=== PATIENT | male | born 1980 | race African-American/Black ===

== ENCOUNTER 2016-06-14 14:24 | Emergency (ER) | payer SELFPAY ==
[~2016-06-14] VITALS: Ht 180.3 cm; Wt 116.0 kg
[2016-06-14 14:29] VITALS: BP 124/78; PULSE 72; RESP 16; TEMP 98.1; O2SAT 100
--- NOTE | 2016-06-14 14:36 | PD ---
HPI Chief Complaint: Injury Time Seen by Provider: 14:35 Travel History International Travel<30 days: No Contact w/Intl Traveler<30days: No Traveled to known affect area: No History of Present Illness HPI 35-year-old right-hand dominant male presents to the ED for evaluation of 4/10 right hand pain. Patient describes the pain as constant, worsened by attempting to make a fist. He denies numbness, tingling, weakness, limitations to range of motion of the extremity. He can identify no acute injury. 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 He denies previous injury to the hand. No treatment attempted at home. PFSH Past Medical History Asthma: Yes Depression: Yes Diminished Hearing: No Musculoskeletal: Yes (CHRONIC BACK PAIN) Psychiatric: Yes Past Surgical History Appendectomy: Yes Social History Alcohol Use: Yes (OCCASIONAL, LAST USED TODAY AT 0245) Tobacco Use: Yes Substance Use: Yes Allergies-Medications (Allergen,Severity, Reaction): Coded Allergies: Aspirin (Verified Allergy, Severe, EMESIS, 06/14/16) Shellfish (Verified Allergy, Severe, SWELLING, 06/14/16) Reported Meds & Prescriptions Reported Meds & Active Scripts Active Naproxen 500 Mg Tab 1,000 Mg PO BID Review of Systems Except as stated in HPI: all other systems reviewed are Neg Physical Exam Narrative GENERAL: Well-nourished, well-developed obese black male in no acute distress. SKIN: Warm and dry. Patient has the word "under" tattooed on his right hand and "taker" tattooed on the left hand. There are several well-healed scars across the MP joint of the right hand. No signs of infection. The skin is intact, no puncture or abrasions noted. HEAD: Normocephalic. EYES: No scleral icterus. No injection or drainage. NECK: Supple, trachea midline. No JVD or lymphadenopathy. CARDIOVASCULAR: Regular rate and rhythm without murmurs, gallops, or rubs. RESPIRATORY: Breath sounds equal bilaterally. No accessory muscle use. GASTROINTESTINAL: Abdomen soft, non-tender, nondistended. MUSCULOSKELETAL: No cyanosis, or edema. FOCUSED RIGHT UPPER EXTREMITY EXAM: 2+ radial pulse. Tender to palpation of the palmar aspect, thenar eminence. No edema, erythema as compared to the contralateral hand. No snuffbox tenderness. No tenderness to palpation of the wrist. Strong finger to thumb opposition. Patient is able to flex and extend the fingers of the hand. Patient is able to flex, extend, supinate and pronate the wrist without pain. Sensation intact to light touch distally. Cap refill less than 2 seconds. BACK: Nontender without obvious deformity. No CVA tenderness. Data Data Last Documented VS Vital Signs Date Time Temp Pulse Resp B/P Pulse Ox O2 Delivery O2 Flow Rate FiO2 06/14/16 14:29 98.1 72 16 124/78 100 Orders Hand, Complete ([id number]) (06/14/16 14:42) [facility] Medical Decision Making Medical Screen Exam Complete: Yes Emergency Medical Condition: Yes Differential Diagnosis Musculoskeletal pain versus osteoarthritis versus tendinitis versus fracture versus dislocation versus other Narrative Course 35-year-old right-hand dominant male presents to the ED for evaluation of 4/10 right hand pain. Described as constant, worsened by attempting to make a fist. He denies numbness, tingling, weakness, limitations to range of motion of the extremity, acute injury. 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 He denies previous injury to the hand. Vitals reviewed. Physical exam reveals an obese black male in no acute distress. 2+ radial pulse bilaterally. Right hand tender to palpation of the palmar aspect, thenar eminence. No edema, erythema as compared to the contralateral hand. No snuffbox tenderness. No breaks in the skin. No tenderness or limitations to ROM of the wrist. Strong finger to thumb opposition. Patient is able to flex and extend the fingers of the hand. Sensation intact to light touch distally. Cap refill less than 2 seconds. Ice pack was applied. Review of the patient's record reveals previous right 4th metacarpal fracture in Apr 2011. Xray of the right hand reveals soft tissue swelling, no acute fracture per radiology report. This is musculoskeletal pain. Patient is encouraged to rest, ice, elevate the extremity. He states that he takes Aleve at home with no problems. He is instructed to take naproxen as prescribed. He was provided a note for work. We discussed reasons to return to the ED. He indicated understanding of the instructions and was amenable to plan of care. He stable and discharged home. Diagnosis Primary Impression: Right hand pain Referrals: Hand Surgeon Primary Care Physician Patient Instructions: Arthritis (ED), General Instructions Departure Forms: Tests/Procedures, Work Release Enter return to work date: Jun 17, 2016 Additional Instructions: Rest, hydrate. Return to normal, gentle activity as tolerated. Ice the extremity 15 minutes per hour 4-5 times a day. Take naproxen twice a day as prescribed. Follow-up with the hand surgeon or your primary care provider this week. Return to the ED for any urgent or emergent medical condition. Med/Other Pt SpecificInfo: Prescription(s) given Scripts Naproxen 500 Mg Tab1,000 Mg PO BID #20 TAB Ref 0 Prov:Angelia Rossi MD 06/14/16 Disposition: 01 DISCHARGE HOME Condition: Stable Fidelina Zhang Jun 14, 2016 14:36
--- NOTE | 2016-06-14 15:12 | RADHPO ---
EXAM DATE/TIME: 06/14/2016 14:47 [facility] COMPARISON: No previous studies available for comparison. INDICATIONS : Right hand pain after using equipment at work. MEDICAL HISTORY : None. SURGICAL HISTORY : None. ENCOUNTER: Initial ACUITY: 3 days PAIN SCORE: 7/10 LOCATION: Right anterior hand and thumb FINDINGS: Three view examination of the right hand demonstrates no dislocation, or fracture. There is mild so ft tissue swelling adjacent to the first metacarpal and between the second and first metacarpal bones . Mild lateral soft tissue swelling is appreciated The carpal bones appear intact. The interphalange al and metacarpophalangeal joints are intact. Bony mineralization is normal. Deformity base of the h danny distal fourth and fifth metacarpals consistent with remote healed fractures CONCLUSION: Soft tissue swelling. No acute bony injury. Saman Flowers MD on June 14, 2016 at 15:09 Board Certified Radiologist. This report was verified electronically.
[2016-06-14] MEDS ORDERED: NAPR500T PO (15:22)
== END 2016-06-14 15:29 | disposition home or self-care (01) ==
LOC: PHEFT 14:24
DX: M79.641 Pain in right hand (principal); G89.29 Other chronic pain; M54.9 Dorsalgia, unspecified; Z72.0 Tobacco use
CPT/HCPCS: 73130; 99283